=== PATIENT | male | born 1955 | race Caucasian/White ===

== ENCOUNTER 2020-07-03 10:37 | Day surgery (SDC) | payer OTHER ==
[~2020-07-03] VITALS: Ht 162.6 cm; Wt 73.0 kg
[~2020-07-03 10:37] MED LIST: SODIUM CHLORIDE 0.9% 1,000 ML IV ONE; SODIUM CHLORIDE 0.9% 1,000 ML ONE
[2020-07-03] MEDS ORDERED: PROPOFOL 1% 20 ML VIAL IVP ONE (10:38)
[2020-07-03] MEDS ORDERED: LIDOCAINE/PF 2% 5 ML VIAL INJ ONE (10:38)
[2020-07-03] MEDS ORDERED: DEXTROSE 50%-WATER 25 GM/50 ML SYRINGE IVP ONE ×2 (11:35→11:45)
[2020-07-03 11:41] LABS: GLUCOMETER DEV NAME(LOC) SDS.; GLUCOSE,POINT OF CARE 61 MG/DL (70-110)
[2020-07-03 12:25] LABS: GLUCOMETER DEV NAME(LOC) SDS.; GLUCOSE,POINT OF CARE 110 MG/DL (70-110)
== END 2020-07-03 14:45 | disposition home or self-care (01) ==
LOC: SURGERY 10:37
PROVIDERS: ATTEND Internal Medicine Gastroenterology
DX: D50.9 Iron deficiency anemia, unspecified (principal); K63.5 Polyp of colon; K31.89 Other diseases of stomach and duodenum; J44.9 Chronic obstructive pulmonary disease, unspecified; I50.9 Heart failure, unspecified; K64.8 Other hemorrhoids; K21.9 Gastro-esophageal reflux disease without esophagitis; I25.10 Atherosclerotic heart disease of native coronary artery without angina pectoris; E11.9 Type 2 diabetes mellitus without complications; F17.200 Nicotine dependence, unspecified, uncomplicated; Z79.899 Other long term (current) drug therapy
CPT/HCPCS: 43239; 45380; 82962; 87426; 93005; C1769; J2704; J3490; J7030; 88305; 88312; 88313